=== PATIENT | female | born 1940 | race Caucasian/White ===

== ENCOUNTER → 2016-07-01 | Outpatient (CLI) | payer MEDICARE ==
--- NOTE | 2016-07-01 23:19 | CONS ---
DATE OF CONSULTATION: This 75-year-old female patient is coming in complaining of feeling tired all the time along with some degree of sleepiness. She has an Lily Dale score of 7. She snores and she has some witnessed apneas and she occasionally wakes up gasping for air. She is complaining also of nocturia. She goes to bed between 9:30 and 11 p.m. and she sleeps around 7 to 8 hours. At times she gets out of bed at 8 a.m. in the morning. Her sleep, however, is quite fragmented and she is very concerned about having obstructive sleep apnea. PAST MEDICAL HISTORY: 1. Obesity. 2. Gout. 3. Hypertension. SURGICAL HISTORY: Bunionectomy. ALLERGIES: NOT KNOWN. OUTPATIENT MEDICATIONS: 1. Allopurinol 100 mg twice a day. 2. Lisinopril 10 mg p.o. daily. SOCIAL HISTORY: Nonsmoker. No history of alcoholism. No history of IV drugs. FAMILY HISTORY: Noncontributory. REVIEW OF SYSTEMS: Twelve-point review of systems was done and positive findings were all mentioned above in the history of present illness. BP is 170/72. Pulse is 80, respiration 16 and temperature 97.5. BMI is 44.4. Weight is 243. Height is 5 feet 2 inches. Neck size 16 inches. GENERAL APPEARANCE: Obese, calm, comfortable. HEENT: Short neck. Crowding of posterior pharynx. No goiter or neck masses. LUNGS: Clear to auscultation. HEART: Sounds are regular rate and rhythm. Normal S1, S2. ABDOMEN: Soft, nontender. No organomegaly. EXTREMITIES: No edema. No cyanosis or clubbing. IMPRESSION: 1. Obstructive sleep apnea suspected, currently under investigation. 2. Obesity with a body mass index of 44.4. 3. Hypersomnia with an Lily Dale score of 7. 4. Hypertension. 5. Gout. PLAN: Proceed with a screening polysomnogram. Will follow.
== END | disposition home or self-care (01) ==
LOC: SLEEP 15:15
PROVIDERS: ATTEND Internal Medicine Critical Care Medicine
DX: G47.33 Obstructive sleep apnea (adult) (pediatric) (principal); Z79.899 Other long term (current) drug therapy; E66.9 Obesity, unspecified; Z68.41 Body mass index [BMI] 40.0-44.9, adult; G47.10 Hypersomnia, unspecified; I10 Essential (primary) hypertension; M10.9 Gout, unspecified
CPT/HCPCS: 99211

== ENCOUNTER → 2016-08-28 | Outpatient (CLI) | payer MEDICARE ==
--- NOTE | 2016-08-28 13:06 | MM ---
Reason for exam: screening (asymptomatic). Last mammogram was performed 1 year ago. History: Patient is postmenopausal and has history of endometrial cancer at age 38. Physical Findings: A clinical breast exam by your physician is recommended on an annual basis and results should be correlated with mammographic findings. MG Screening Mammo w CAD Bilateral CC and MLO view(s) were taken. Prior study comparison: June 02, 2014, bilateral MG screening mammo w CAD. There are scattered fibroglandular densities. Finding: There are typically benign vascular, round, linear calcifications in both breasts. There is no discrete abnormality. ASSESSMENT: Benign, BI-RAD 2 RECOMMENDATION: Routine screening mammogram of both breasts in 1 year.
== END | disposition home or self-care (01) ==
LOC: RADMAMWWP 10:48
PROVIDERS: ATTEND Family Medicine
DX: Z12.31 Encounter for screening mammogram for malignant neoplasm of breast (principal)

== ENCOUNTER → 2016-11-18 | Outpatient (CLI) | payer MEDICARE ==
--- NOTE | 2016-11-18 19:08 | PN ---
A 76-year-old female patient coming in for a compliancy check. The patient was diagnosed having obstructive sleep apnea, mild in severity, with an AHI of 7 yet significantly worse during REM sleep where AHI was as high as 40 and she was having significant nocturnal oxygen desaturation where the pulse ox was dropping as low as 60%. Based on that, the patient was given an auto CPAP unit with a minimum pressure of 5 and a maximum pressure of 13. Today she is coming in for a compliancy check. She is using an AirFit P10 nose pillow. Her compliancy check shows that the patient is using CPAP every night and her compliance for more than 4 hours is 100%. The average CPAP use is around 7.7 hours per night. Her P90 pressure is at 9.4 and the patient's AHI while on treatment is down to 1.9. Leak factor is only at 12 L/min. The patient is feeling much better. She is sleeping more comfortably and her sleep quality has improved and she is waking up less for urination. She is waking up much more alert and awake during the day and as such, she is definitely benefiting from the treatment. BP is 160/69, pulse 92, respirations 16, saturation 94% on room air. [place] score is 3, temperature 97.5, weight is 243. GENERAL APPEARANCE: Calm, comfortable. HEENT: Crowding of posterior pharynx. There is no goiter or neck masses. LUNGS: Clear to auscultation. HEART: Heart sounds are regular rate and rhythm, normal S1, S2. No S3. No murmurs. ABDOMEN: Soft, nontender. No organomegaly. EXTREMITIES: No edema. No cyanosis or clubbing. IMPRESSION: 1. Symptomatic obstructive sleep apnea, mild in severity, with an AHI of 7, worse during REM. AHI during REM is 40. 2. Hypersomnia, improved. 3. Obesity. 4. Moderate to severe periodic limb movements, not causing any significant arousals. PLAN: 1. Proceed with CPAP therapy at the same settings. 2. Compliancy data was checked and the patient is using the machine appropriately and she is compliant. 3. No need for any adjustments on the CPAP pressure settings. 4. Continue using the same mask interface. 5. Encourage weight loss. 6. See me back in a year's time. This is successful treatment.
== END | disposition home or self-care (01) ==
LOC: SLEEP 14:14
PROVIDERS: ATTEND Internal Medicine Critical Care Medicine
DX: G47.33 Obstructive sleep apnea (adult) (pediatric) (principal); G47.10 Hypersomnia, unspecified; E66.9 Obesity, unspecified; G47.61 Periodic limb movement disorder

== ENCOUNTER → 2017-09-14 | Outpatient (CLI) | payer MEDICARE ==
--- NOTE | 2017-09-14 13:16 | BD ---
EXAMINATION TYPE: MG DEXA axial skeleton. DATE OF EXAM: 09/14/2017 COMPARISON: NONE CLINICAL HISTORY: No significant stenosis seen Height: 62.5 Weight: 238.1 FRAX RISK QUESTIONS: Alcohol (3 or more units per day): no Family History (Parent hip fracture): no Glucocorticoids (More than 3mos): no (Ex: prednisone, prednisolone, methylprednisolone, dexamethasone, and hydrocortisone). History of Fracture in Adulthood: no Secondary Osteoporosis: 1. Type 1 Diabetes: no 2. Hyperthyroidism: no 3. Menopause before 45: yes 4. Malnutrition: no 5. Chronic liver disease: no Rheumatoid Arthritis: no Current Tobacco Use: no RISK FACTORS HISTORY OF: Family History of Osteoporosis: yes Active: sometimes Diet low in dairy products/other sources of calcium: yes Postmenopausal woman: 1979 Lost more than 2 inches in height since high school: yes MEDICATIONS: lisinopril Additional History: EXAM MEASUREMENTS: Bone mineral densitometry was performed using the [employer] System. Bone mineral density as measured about the Lumbar spine is: ----- L1-L4(G/cm2): 1.509 T Score Values are as follows: ----- L2: 2.3 ----- L3: 3.1 ----- L4: 2.4 ----- L1-L4: 2.6 Bone mineral density has: decreased -3.2 % since study of: 03.21.2014 Bone mineral density about the R hip (g/cm2): 0.945 Bone mineral density about the L hip (g/cm2): 1.017 T Score values are as follows: -----R Neck: -0.7 -----L Neck: -0.2 -----R Total: 0.5 -----L Total: 0.9 Bone mineral density has: increased 2.1 % since study of: 03.21.2014 IMPRESSION: No evidence for Osteoporosis or osteopenia. NOTE: T-SCORE=SD OF THE YOUNG ADULT MEAN.
--- NOTE | 2017-09-15 10:45 | MM ---
Reason for exam: screening (asymptomatic). Last mammogram was performed 1 year and 1 month ago. History: Patient is postmenopausal and has history of endometrial cancer at age 38. Physical Findings: A clinical breast exam by your physician is recommended on an annual basis and results should be correlated with mammographic findings. MG Screening Mammo w CAD Bilateral CC and MLO view(s) were taken. Prior study comparison: August 28, 2016, bilateral MG screening mammo w CAD. August 28, 2015, bilateral MG 3d screening mammo w/cad. There are scattered fibroglandular densities. Stable benign calcifications. There is no discrete abnormality. No significant changes when compared with prior studies. ASSESSMENT: Benign, BI-RAD 2 RECOMMENDATION: Routine screening mammogram of both breasts in 1 year.
== END ==
LOC: RADMAMWWP 11:53
PROVIDERS: ATTEND Family Medicine
DX: Z12.31 Encounter for screening mammogram for malignant neoplasm of breast (principal); Z13.820 Encounter for screening for osteoporosis
CPT/HCPCS: 77067; 77080

== ENCOUNTER 2018-05-19 09:00 | Day surgery (SDC) | payer MEDICARE ==
[2018-05-17 10:58] VITALS: BMI 37.8
[~2018-05-19 09:00] MED LIST: LACTATED RINGERS 1,000 ML IV SCH; LIDOCAINE 1% 20 ML VIAL (10MG/ML) FOR IV START INTRADERMA PRN
[2018-05-19 11:28] VITALS: RESP 18; TEMP 97.8
[2018-05-19] MEDS ORDERED: PROPOFOL 10 MG/ML 20 ML VIAL IV ONE (11:47)
--- NOTE | 2018-05-19 12:04 | P.PCN ---
Date of Procedure: 05/19/18 Procedure(s) Performed: BRIEF HISTORY: Patient is a 77-year-old pleasant white female, scheduled for an elective colonoscopy as a part of surveillance of prior history of colon polyps. Her last colonoscopy was 3 years ago and was noted to have an adenoma. PROCEDURE PERFORMED: Colonoscopy. PREOPERATIVE DIAGNOSIS: History of colon polyps. IV sedation per Anesthesia. PROCEDURE: After informed consent was obtained, the patient, was brought into the endoscopy unit. IV sedation was administered by Anesthesia under continuous monitoring. Digital rectal examination was normal. Initially the Olympus CF- 160 flexible video colonoscope was then inserted in the rectum, gradually advanced into the cecum without any difficulty. Careful examination was performed as the scope was gradually being withdrawn. Ileocecal valve and the appendiceal orifice were visualized and appeared normal. Prep was excellent. Mucosa of the cecum, ascending colon, transverse colon, descending colon, sigmoid colon, and rectum appeared normal. Scattered sigmoid diverticulosis seen. Retroflexion was performed in the rectum and no lesions were seen. The patient tolerated the procedure well. IMPRESSION: Normal-appearing colon from rectum to cecum with no evidence of colorectal neoplasia Scattered sigmoid diverticulosis . RECOMMENDATIONS: Findings of this examination were discussed with the patient well as her family. She was advised to have a repeat surveillance colonoscopy in 5 years from now because of the prior history of colon polyps.
[2018-05-19 12:33] VITALS: BP 127/73; PULSE 77
== END 2018-05-19 12:56 | disposition home or self-care (01) ==
LOC: ORWHC2ENDO 09:00
PROVIDERS: ATTEND Internal Medicine Gastroenterology
DX: Z12.11 Encounter for screening for malignant neoplasm of colon (principal); K57.30 Diverticulosis of large intestine without perforation or abscess without bleeding; Z86.010 Personal history of colon polyps; I10 Essential (primary) hypertension; G47.33 Obstructive sleep apnea (adult) (pediatric); M10.9 Gout, unspecified; Z85.41 Personal history of malignant neoplasm of cervix uteri; Z79.899 Other long term (current) drug therapy
CPT/HCPCS: J2704; G0105; 45378

== ENCOUNTER → 2018-11-08 | Outpatient (CLI) | payer MEDICARE ==
--- NOTE | 2018-11-08 13:31 | XR ---
EXAMINATION TYPE: XR chest 2V DATE OF EXAM: 11/08/2018 COMPARISON: Prior chest x-ray 02/07/2014 HISTORY: Dyspnea TECHNIQUE: Frontal and lateral views of the chest are obtained. FINDINGS: Patient is rotated, there may be underlying scoliosis. There is no focal air space opacity , pleural effusion, or pneumothorax seen. The cardiac silhouette size is stable, likely accentuated by rotation but may be enlarged. There is eventration of the hemidiaphragm on the right. Aorta is d ense. Prominent lung findings compatible with underlying COPD. There are prominent epicardial fat pad s. Thoracic spondylosis is present. The osseous structures are intact. IMPRESSION: No acute cardiopulmonary process.
== END ==
LOC: RADXRMAIN 11:58
PROVIDERS: ATTEND Family Medicine
DX: R06.00 Dyspnea, unspecified (principal)
CPT/HCPCS: 71046

== ENCOUNTER → 2018-11-30 | Outpatient (CLI) | payer MEDICARE ==
--- NOTE | 2018-12-01 11:18 | MM ---
Reason for exam: screening (asymptomatic). Last mammogram was performed 1 year and 3 months ago. History: Patient is postmenopausal and has history of endometrial cancer at age 38. Physical Findings: A clinical breast exam by your physician is recommended on an annual basis and results should be correlated with mammographic findings. MG Screening Mammo w CAD Bilateral CC and MLO view(s) were taken. XCCL view(s) were taken of the left breast. Prior study comparison: September 14, 2017, bilateral MG screening mammo w CAD. August 28, 2016, bilateral MG screening mammo w CAD. There are scattered fibroglandular densities. Benign vascular calcifications. No significant changes when compared with prior studies. ASSESSMENT: Negative, BI-RAD 1 RECOMMENDATION: Routine screening mammogram of both breasts in 1 year.
== END | disposition home or self-care (01) ==
LOC: RADMAMWWP 11:11
PROVIDERS: ATTEND Family Medicine
DX: Z12.31 Encounter for screening mammogram for malignant neoplasm of breast (principal)
CPT/HCPCS: 77067

== ENCOUNTER → 2019-11-15 | Outpatient (CLI) | payer MEDICARE ==
[2019-11-15 15:25] LABS: Basophils % (A) 0 %; Eosinophils # (A) 0.2 k/uL (0-0.7); Eosinophils % (A) 2 %; HCT 44.4 % (34.0-46.0); HGB 14.7 gm/dL (11.4-16.0); Lymphocytes % (A) 29 %; MCH 31.6 pg (25.0-35.0); MCHC 33.2 g/dL (31.0-37.0); MCV 95.1 fL (80.0-100.0); Mean Platelet Volume 7.4; Monocytes # (A) 0.3 k/uL (0-1.0); Monocytes % (A) 5 %; Neutrophils # (A) 4.2 k/uL (1.3-7.7); Neutrophils % (A) 62 %; Platelet Count 216 k/uL (150-450); RBC 4.67 m/uL (3.80-5.40); RDW 14.1 % (11.5-15.5); WBC 6.8 k/uL (3.8-10.6)
--- NOTE | 2019-11-15 16:17 | US ---
EXAMINATION TYPE: US venous doppler duplex LE DATE OF EXAM: 11/15/2019 4:06 PM COMPARISON: NONE CLINICAL HISTORY: R22.40 Localized swelling, mass and lump, unspecif. SIDE PERFORMED: Bilateral TECHNIQUE: The lower extremity deep venous system is examined utilizing real time linear array sonog leigha with graded compression, doppler sonography and color-flow sonography. VESSELS IMAGED: External Iliac Vein (EIV) Common Femoral Vein Deep Femoral Vein Greater Saphenous Vein * Femoral Vein Popliteal Vein Small Saphenous Vein * Proximal Calf Veins (* superficial vessels) Patient of very large body habitus. Right Leg: Negative for DVT Left Leg: Negative for DVT There is normal flow, compressibility, vascular waveforms. IMPRESSION: No evident deep venous thrombosis at or above the knees.
[2019-11-15 23:35] LABS: African American GFR (CKD) 71.5 (60.0-200.0); Albumin 4.5 g/dL (3.80-4.90); Albumin/Globulin Ratio 2.37 (1.60-3.17); Anion Gap 10.3 mmol/L (4.00-12.00); BUN/Creat Ratio 18.89 Ratio (12.00-20.00); Calcium 9.7 mg/dL (8.7-10.3); Carbon Dioxide 26.7 mmol/L (21.6-31.8); Globulin 1.9 g/dL (1.6-3.3); Magnesium 1.8 mg/dL (1.5-2.4); Non-African American GFR(CKD) 61.7 (60.0-200.0); Potassium 4.2 mmol/L (3.5-5.5); Total Bilirubin 0.6 mg/dL (0.3-1.2); Total Protein 6.4 g/dL (6.2-8.2)
== END | disposition home or self-care (01) ==
LOC: LABWHC1 14:45
PROVIDERS: ATTEND Family Medicine
DX: R22.40 Localized swelling, mass and lump, unspecified lower limb (principal)
CPT/HCPCS: 36415; 80053; 83735; 83880; 85025; 85379; 93970

== ENCOUNTER → 2020-02-03 | Outpatient (CLI) | payer MEDICARE ==
--- NOTE | 2020-02-03 15:08 | US ---
EXAMINATION TYPE: US kidneys/renal and bladder DATE OF EXAM: 02/03/2020 COMPARISON: NONE CLINICAL HISTORY: N18.2 Chronic kidney disease Stage 2. EXAM MEASUREMENTS: Right Kidney: 8.4 x 4.2 x 4.1 Left Kidney: 9.7 x 4.3 x 4.1 Patient of large body habitus, technically difficult, limited study. *Incidental finding large gallstone Right Kidney: No hydronephrosis or masses seen, measures small Left Kidney: No hydronephrosis or masses seen, lobular contour Bladder: sits inferior There is no evidence for hydronephrosis at this point in time. No nephrolithiasis is seen. No philomena s are identified. The urinary bladder is anechoic. Bilateral ureteral jets are seen. IMPRESSION: The kidneys are diminutive in size.
== END | disposition home or self-care (01) ==
LOC: RADUSWWP 14:12
PROVIDERS: ATTEND Internal Medicine
DX: N18.2 Chronic kidney disease, stage 2 (mild) (principal)
CPT/HCPCS: 76770

== ENCOUNTER → 2020-05-17 | Outpatient (CLI) | payer MEDICARE ==
--- NOTE | 2020-05-17 10:48 | XR ---
EXAMINATION TYPE: XR chest 2V DATE OF EXAM: 05/17/2020 COMPARISON: 11/08/2018 TECHNIQUE: PA and lateral views submitted. HISTORY: Shortness of breath FINDINGS: Patient is rotated. Heart is prominent left lower lobe infiltrate. Coarsened interstitium. No pneumot horax. Arthropathy of the shoulders. IMPRESSION: 1. Left lower lobe infiltrate.
[2020-05-17 11:42] LABS: Albumin 4.3 g/dL (3.5-5.0); Calcium 9.4 mg/dL (8.4-10.2); Potassium 4.1 mmol/L (3.5-5.1); Total Bilirubin 0.6 mg/dL (0.2-1.3); Total Protein 6.8 g/dL (6.3-8.2)
== END | disposition home or self-care (01) ==
LOC: RADXRMAIN 10:17
PROVIDERS: ATTEND Internal Medicine Cardiovascular Disease
DX: R91.8 Other nonspecific abnormal finding of lung field (principal)
CPT/HCPCS: 71046; 80053; 83880

== ENCOUNTER → 2020-05-17 | Outpatient (CLI) | payer MEDICARE ==
--- NOTE | 2020-05-21 11:15 | MM ---
Reason for exam: screening (asymptomatic). Last mammogram was performed 1 year and 5 months ago. History: Patient is postmenopausal and has history of endometrial cancer at age 38. Physical Findings: A clinical breast exam by your physician is recommended on an annual basis and results should be correlated with mammographic findings. MG Screening Mammo w CAD Bilateral CC and MLO view(s) were taken. Prior study comparison: November 30, 2018, bilateral MG screening mammo w CAD. September 14, 2017, bilateral MG screening mammo w CAD. There are scattered fibroglandular densities. No significant changes when compared with prior studies. ASSESSMENT: Benign, BI-RAD 2 RECOMMENDATION: Routine screening mammogram of both breasts in 1 year.
== END | disposition home or self-care (01) ==
LOC: RADMAMWWP 10:33
PROVIDERS: ATTEND Family Medicine
DX: Z12.31 Encounter for screening mammogram for malignant neoplasm of breast (principal)
CPT/HCPCS: 77067

== ENCOUNTER → 2020-07-03 | Outpatient (CLI) | payer MEDICARE ==
--- NOTE | 2020-07-03 11:08 | XR ---
EXAMINATION TYPE: XR chest 2V DATE OF EXAM: 07/03/2020 COMPARISON: Prior chest x-ray 05/17/2020 HISTORY: R 91.8, abnormal chest x-ray TECHNIQUE: Frontal and lateral views of the chest are obtained. FINDINGS: Aorta is dense. Heart size is stable, appearance may be accentuated by technique, rotation . Eventration of right hemidiaphragm. Left hemidiaphragm is poorly visualized. No evident pneumothorax. Thoracic spondylosis is present. Prominent lung volumes could be indicative of underlying COPD. Ther e is spinal curvature. IMPRESSION: Findings are similar to prior exam. Abnormality described in prior report may be due to epicardial fat pad, underlying scoliosis
== END | disposition home or self-care (01) ==
LOC: RADXRMAIN 10:38
PROVIDERS: ATTEND Family Medicine
DX: R91.8 Other nonspecific abnormal finding of lung field (principal)
CPT/HCPCS: 71046

== ENCOUNTER → 2021-12-17 | Outpatient (CLI) | payer MEDICARE ==
--- NOTE | 2021-12-17 13:16 | XR ---
Lumbar spine HISTORY: Pain 3 views of the lumbar spine There is anterolisthesis grade 1 L4-5. Spinal curvature is present, convex left centered at L2. Lumba r vertebral bodies show preserved height. Bone mineralization is reduced. Sclerosis in the posterior elements is consistent with facet arthropathy. Loss of disc height is greatest at L5-S1 with associat ed facet arthropathy. Atherosclerotic vascular calcifications are noted. IMPRESSION: Scoliosis, osteopenia, facet arthropathy, degenerative disc disease and spondylolisthesis L4-5
== END | disposition home or self-care (01) ==
LOC: RADXRMAIN 10:12
PROVIDERS: ATTEND Family Medicine
DX: M43.16 Spondylolisthesis, lumbar region (principal); M51.26 Other intervertebral disc displacement, lumbar region; M47.816 Spondylosis without myelopathy or radiculopathy, lumbar region
CPT/HCPCS: 72100

== ENCOUNTER → 2022-01-07 | Outpatient (CLI) | payer MEDICARE ==
--- NOTE | 2022-01-08 19:56 | MM ---
Reason for Exam: Screening (asymptomatic). Last mammogram was performed 1 year(s) and 8 month(s) ago. Patient History: Menarche at age 14. First Full-Term at age 22. Hysterectomy at age 38. Postmenopausal. Endometrial cancer, age 38. Risk Values: Liza 5 year model risk: 1.5%. NCI Lifetime model risk: 2.5%. Prior Study Comparison: 08/28/2015 Bilateral Screening Mammogram, [facility]. 08/28/2016 Bilateral Screening Mammogram, [facility]. 09/14/2017 Bilateral Screening Mammogram, [facility]. 11/30/2018 Bilateral Screening Mammogram, [facility]. 05/17/2020 Bilateral Screening Mammogram, [facility]. Tissue Density: There are scattered fibroglandular densities. Findings: Analyzed By CAD. There is no suspicious group of microcalcifications or new suspicious mass in either breast. Overall Assessment: Negative, BI-RAD 1 Management: Screening Mammogram of both breasts in 1 year. 1. Patient should continue monthly self breast exams. 2. A clinical breast exam by your physician is recommended on an annual basis. 3. This exam should not preclude additional follow-up of suspicious palpable abnormalities. Electronically signed and approved by: Nikko Campbell M.D. Radiologist
== END | disposition home or self-care (01) ==
LOC: RADMAMWWP 10:35
PROVIDERS: ATTEND Family Medicine
DX: Z12.31 Encounter for screening mammogram for malignant neoplasm of breast (principal); Z78.0 Asymptomatic menopausal state
CPT/HCPCS: 77063; 77067

== ENCOUNTER → 2023-02-04 | Outpatient (CLI) | payer MEDICARE ==
--- NOTE | 2023-02-05 08:13 | MM ---
Reason for Exam: Screening (asymptomatic). Last screening mammogram was performed 12 month(s) ago. Patient History: Menarche at age 14. First Full-Term at age 22. Hysterectomy at age 38. Postmenopausal. Risk Values: Liza 5 year model risk: 1.5%. NCI Lifetime model risk: 2.3%. Prior Study Comparison: 11/30/2018 Bilateral Screening Mammogram, [facility]. 05/17/2020 Bilateral Screening Mammogram, [facility]. 01/07/2022 Bilateral MG 3D screening mammo w/cad, [facility]. Tissue Density: The breast tissue is almost entirely fat. Findings: Analyzed By CAD. There is no suspicious group of microcalcifications or new suspicious mass in either breast. Overall Assessment: Negative, BI-RAD 1 Management: Screening Mammogram of both breasts in [address] [facility] will attempt to contact patient to return for supplemental views and ultrasound if indicated. Patient should continue monthly self-breast exams. A clinical breast exam by your physician is recommended on an annual basis. This exam should not preclude additional follow-up of suspicious palpable abnormalities. Note on Liza scores and lifetime risk: 1. A Liza score greater than 3% is considered moderate risk. If this is the case, consider specialist referral to assess eligibility for a risk reducing agent. 2. If overall lifetime risk for the development of breast cancer is 20% or higher, the patient may qualify for future screening with alternating mammogram and breast MRI. Electronically signed and approved by: Jimmie Vital DO
== END | disposition home or self-care (01) ==
LOC: RADMAMWWP 11:38
PROVIDERS: ATTEND Family Medicine
DX: Z12.31 Encounter for screening mammogram for malignant neoplasm of breast (principal); Z78.0 Asymptomatic menopausal state
CPT/HCPCS: 77063; 77067

== ENCOUNTER → 2024-03-21 | Outpatient (CLI) | payer MEDICARE ==
--- NOTE | 2024-03-21 14:08 | XR ---
EXAMINATION TYPE: XR knee limited bilateral DATE OF EXAM: 03/21/2024 COMPARISON: NONE HISTORY: Pain TECHNIQUE: Two views are submitted. FINDINGS: Left knee: There is moderate narrowing of the tricompartment joint space. Marginal spurring. No erosi ve changes. Small suprapatellar bursa fluid collection. Vascular calcifications. Enthesophyte along t he upper margin of the patella. Right knee: Severe narrowing of the medial compartment, mild narrowing lateral compartment and modera te narrowing of patellofemoral compartment and the joint space with marginal spurring. No erosive atul nges. Hyperostosis along the posterior margin of the proximal tibia and distal femur. Small suprapate llar bursal fluid collection. Enthesophyte along the upper margin of patella. IMPRESSION: 1. Severe right osteoarthritis. 2. Moderate left osteoarthritis. 3. Small bilateral suprapatellar bursal fluid collections. [facility], , 03/21/2024 2:06 PM
== END | disposition home or self-care (01) ==
LOC: RADXRMAIN 13:22
PROVIDERS: ATTEND Family Medicine
DX: M17.0 Bilateral primary osteoarthritis of knee (principal)